=== PATIENT | male | born 1975 | race African-American/Black ===

== ENCOUNTER 2018-12-26 01:41 | Observation (INO) | payer MEDICARE, MEDICAID ==
[2018-12-26] MEDS ORDERED: INSULIN REG, HUMAN 100 UNIT/ML 3 ML VIAL (PYX) SUBCUT ONE (01:53)
--- NOTE | 2018-12-26 01:54 | ER Document Report ---
ED General - General Stated Complaint: HIGH BLOOD SUGAR Time Seen by Provider: 12/26/18 01:47 Notes: Patient is a pleasant 43-year-old male with a history of end-stage renal disease and diabetes who presents with complaint of nausea and vomiting. He said it started tonight. He does get dialysis Monday. He said he had dialysis today and everything went normal and he felt fine afterwards. He called an ambulance because he was having nausea vomiting and felt unwell. When paramedics arrived he was lying on the floor and vomiting. He said he was a bit altered. Given 250 mL's of lactated Ringer's and Zofran for nausea. Patient says after receiving the Zofran he feels a lot better. Denies headache. Denies chest pain. Denies abdominal pain. No diarrhea. No other complaints at this time. He denies recent sick contacts. Blood sugar was elevated the ambulance. blood sugar was 518. Patient says he took 18 units of Lantus at 8 PM. - Related Data Allergies/Adverse Reactions: No Known Allergies Allergy (Verified 12/26/18 02:37) Past Medical History - Social History Smoking Status: Never Smoker Frequency of alcohol use: None Drug Abuse: None Family History: Reviewed & Not Pertinent Review of Systems - Review of Systems Notes: My Normal Review Basic REVIEW OF SYSTEMS: CONSTITUTIONAL : Denies fever, chills, or sweats. Denies recent illness. EENT: Denies eye, ear, throat, or mouth pain or symptoms. Denies nasal or sinus congestion. CARDIOVASCULAR: Denies chest pain. RESPIRATORY: Denies cough, cold, or chest congestion. Denies shortness of breath, difficulty breathing, or wheezing. GASTROINTESTINAL: Denies abdominal pain. Vomiting. GENITOURINARY: Denies difficulty urinating, painful urination, burning, frequency, or blood in urine. FEMALE GENITOURINARY: Denies vaginal bleeding, abnormal or irregular periods. LMP: MUSCULOSKELETAL: Denies neck or back pain or joint pain or swelling. SKIN: Denies rash or skin lesions. NEUROLOGICAL: She was confused and altered however that has since subsided. He denies headache. No focal weakness or numbness. ALL OTHER SYSTEMS REVIEWED AND NEGATIVE. Physical Exam - Vital signs Vitals: Temp Resp BP Pulse Ox 98.1 F 18 188/100 H 91 L 12/26/18 01:47 12/26/18 01:47 12/26/18 01:47 12/26/18 01:47 - Notes Notes: General Appearance: Well nourished, alert, cooperative, no acute distress, no obvious discomfort. Vitals: reviewed, See vital signs table. Head: no swelling or tenderness to the head Eyes: PERRL, EOMI, Conjuctiva clear Mouth: No decreasd moisture Lungs: No wheezing, No rales, No rhonci, No accessory muscle use, good air exchange bilaterally. Heart: Normal rate, Regular rythm, No murmur, no rub Abdomen: Normal BS, soft, No rigidity, No abdominal tenderness, No guarding, no rebound, no abdominal masses, no organomegaly Extremities: strength 5/5 in all extremities, good pulses in all extremities, fistula in left upper extremity. Good palpable thrill. Good distal pulses. No edema in lower extremities. Skin: warm, dry, appropriate color, no rash Neuro: speech clear, oriented x 3, normal affect, responds appropriately to questions. Cranial nerves II through XII are intact. Distal sensation intact. Patient was all extremities without difficulty. Course - Re-evaluation Re-evalutation: 12/26/18 02:56 Patient's is now at bedside. She is able to give me one more history. Apparently thought it remained in the room the patient had rolled off the bed and was lying on the ground with his eyes open and completely unresponsive. She called 911. She said that he eventually took her breath but it took some time before he was breathing on his own. He then started having intractable vomiting until paramedics got there. Paramedics arrived he still bit confused but that has since improved. Patient is currently back to his baseline. Patient himself admits now that he does not really remember exactly what happened. I have ordered a CT scan to look at his head. 12/26/18 04:54 Skin of his head is negative. Initial troponin is normal. Patient's neurologic status is back to baseline is acting appropriately at this time. I am concerned with his multiple risk factors of factor syncopal episode caused him to be poorly responsive and confused for greater than 5 minutes and he had intractable vomiting immediately following this. This with his risk factors for CAD make him high risk of potential underlying arrhythmia or cardiac event. I therefore feel is is appropriate to consult hospitalist for admission for telemetry observation to trend his enzymes and keep on telemetry for observation. He is not due for dialysis again until . He will likely be discharged home before requiring dialysis as long as his enzymes remain normal and he has no further events. I therefore feel it is appropriate to admit him here for observation. I did speak with Dr. Cerna, hospitalist, who agrees to evaluate the patient for admission. Dictation of this chart was performed using voice recognition software; therefore, there may be some unintended grammatical errors. - Vital Signs Vital signs: Temp Pulse Resp BP Pulse Ox 98.1 F 19 162/89 H 96 12/26/18 01:47 12/26/18 04:01 12/26/18 04:01 12/26/18 04:01 - Laboratory Result Diagrams: 12/26/18 01:52 12/26/18 01:52 Laboratory results interpreted by me: 12/26/18 12/26/18 01:52 01:52 Hgb 10.3 L Hct 32.2 L RDW 17.0 H Sodium 135.1 L Chloride 95 L BUN 30 H Creatinine 8.51 H Est GFR ( Amer) 6 L Est GFR (Non-Af Amer) 5 L Glucose 466 H* Direct Bilirubin 0.5 H Alkaline Phosphatase 140 H - EKG Interpretation by Me Additional EKG results interpreted by me: 12/26/18 01:54 EKG is reviewed and interpreted by me. EKG shows sinus rhythm with a rate of [address] segment elevation or depression. No ischemic T wave inversions. DE interval, QRS duration are within normal range. QT interval is prolonged. 12/26/18 01:54 Discharge - Discharge Clinical Impression: ESRD (end stage renal disease), Hyperglycemia Syncope Qualifiers: Syncope type: unspecified Qualified Code(s): R55 - Syncope and collapse Vomiting Qualifiers: Vomiting type: unspecified Vomiting Intractability: non-intractable Nausea presence: with nausea Qualified Code(s): R11.2 - Nausea with vomiting, unspecified Condition: Stable Disposition: ADMITTED OBSERVATION Admitting Provider: Nehemiah (Hospitalist) Unit Admitted: Telemetry
[2018-12-26 02:03] LABS: ABSOLUTE EOSINOPHILS # (AUTO) 0.1 10^3/uL (0.0-0.6); ABSOLUTE LYMPHOCYTES (AUTO) 0.9 10^3/uL (0.5-4.7); ABSOLUTE MONOCYTES (AUTO) 0.3 10^3/uL (0.1-1.4); ABSOLUTE NEUT (AUTO) 3.2 10^3/uL (1.7-8.2); BASOPHILS % (AUTO) 0.4 % (0-2); EOSINOPHILS % (AUTO) 1.7 % (0-6); HEMATOCRIT 32.2 % (36.0-47.0); HEMOGLOBIN 10.3 g/dL (12.0-15.5); LYMPHOCYTES % (AUTO) 19.9 % (13-45); MEAN CORPUSCULAR HEMOGLOBIN 27.2 pg (27.0-33.4); MEAN CORPUSCULAR VOLUME 85 fl (80-97); MONOCYTES % (AUTO) 7.3 % (3-13); PLATELET COUNT 269 10^3/uL (150-450); RED BLOOD COUNT 3.79 10^6/uL (3.72-5.28); SEGMENTED NEUTROPHILS % (AUTO) 70.7 % (42-78); TOTAL CELLS COUNTED % (AUTO) 100 %; WHITE BLOOD COUNT 4.6 10^3/uL (4.0-10.5)
[2018-12-26 02:21] LABS: ALANINE AMINOTRANSFERASE 23 U/L (9-52); ALBUMIN 3.9 g/dL (3.5-5.0); ALKALINE PHOSPHATASE 140 U/L (38-126); ANION GAP 14 (5-19); ASPARTATE AMINO TRANSFERASE 19 U/L (14-36); BILIRUBIN,DIRECT 0.5 mg/dL (0.0-0.4); BILIRUBIN,TOTAL 0.6 mg/dL (0.2-1.3); BLOOD UREA NITROGEN 30 mg/dL (7-20); CALCIUM 9.3 mg/dL (8.4-10.2); CARBON DIOXIDE 26 mmol/L (22-30); CHLORIDE 95 mmol/L (98-107); LIPASE 39.7 U/L (23-300); POTASSIUM 4.7 mmol/L (3.6-5.0); SODIUM 135.1 mmol/L (137-145); TOTAL PROTEIN 7.4 g/dL (6.3-8.2)
[2018-12-26 02:29] LABS: GLUCOSE 466 mg/dL (75-110)
--- NOTE | 2018-12-26 03:55 | RADIOLOGY REPORT (SQ) ---
EXAM DESCRIPTION: CT HEAD WITHOUT IV CONTRAST COMPLETED DATE/TME: 12/26/2018 02:54 CLINICAL HISTORY: 43 years, Male, syncope COMPARISON: None. TECHNIQUE: 220 Images stored on PACS. All CT scanners at this facility use dose modulation, iterative reconstruction, and/or weight based dosing when appropriate to reduce radiation dose to as low as reasonably achievable (ALARA). [facility]: Dose Right [facility]: CareDose [facility]: Dose Right [facility]: Teradose 4D [facility]: [employer] LIMITATIONS: None. FINDINGS: The globes are intact. The paranasal sinuses and mastoid air cells are unremarkable. No displaced or depressed skull fracture. No intra or extra-axial hemorrhage. Subcutaneous edema and inflammatory change in the occipital region. Correlate with history. CT is limited for evaluation of acute infarct. No CT evidence for large or territorial acute infarct. No mass or midline shift. IMPRESSION: Subcutaneous inflammation in the occipital region. Negative for acute intracranial abnormality TECHNICAL DOCUMENTATION: Quality ID # 436: Final reports with documentation of one or more dose reduction techniques (e.g., Automated exposure control, adjustment of the mA and/or kV according to patient size, use of iterative reconstruction technique) copyright 2010 [employer]- All Rights Reserved
[2018-12-26] MEDS ORDERED: MAGNESIUM HYDROXIDE SUSP 30 ML UDCUP PO PRN (05:21)
[2018-12-26] MEDS ORDERED: MAG HYDROX/AL HYDROX/SIMETH SUSP 30 ML UDCUP PO PRN (05:21)
[2018-12-26] MEDS ORDERED: TEMAZEPAM 15 MG CAPSULE PO PRN (05:21)
[2018-12-26] MEDS ORDERED: HYDRALAZINE HCL INJ/PF 20 MG/1 ML SDV IV PRN (05:30)
[2018-12-26] MEDS ORDERED: INSULIN REG, HUMAN 100 UNIT/ML 3 ML VIAL (PYX) SUBCUT PRN ×2 (05:30→06:04)
[2018-12-26] MEDS ORDERED: ACETAMINOPHEN 325 MG TABLET PO PRN (05:30)
[2018-12-26] MEDS: HEPARIN SOD (PORCINE) 5,000 UNIT/ML 1 ML SYRINGE SUBCUT SCH ×2 (06:01→15:53)
[2018-12-26] MEDS: PANTOPRAZOLE SODIUM 40 MG TABLET.DR PO SCH ×2 (06:01→17:30)
[2018-12-26] MEDS ORDERED: DEXTROSE 40% GEL 15 GM TUBE PO PRN ×4 (06:04→13:06)
[2018-12-26] MEDS ORDERED: GLUCAGON,HUMAN RECOMB 1 MG INJ IM PRN ×2 (06:04→13:06)
[2018-12-26] MEDS ORDERED: DEXTROSE 50%-WATER 25 GM/50 ML DISP.SYRIN IV PRN ×4 (06:04→13:06)
--- NOTE | 2018-12-26 06:18 | PDOC H&P ---
History of Present Illness Admission Date/PCP: 12/26/2018 Patient complains of: Acute syncopal episode History of Present Illness: JOSE FOWLER is a 43 year old male who presented via EMS to the emergency room with a history of an acute syncopal episode. Patient had come home from his scheduled hemodialysis today as usual and had been feeling well all evening, then at bedtime his noticed a loud thud which came from the bedroom. She went in to find her on the floor poorly responsive. She called EMS and upon their arrival approximately 10 minutes after initiation of the call they found him moderately responsive but noted that he developed severe and intractable vomiting without nausea, which continued throughout most of his emergency room course. Patient has no memory of the episode and no recollection of any abnormalities prior to the episode. He denies prior similar symptoms and has not identified any aggravating or ameliorating factors for his syncope. In the emergency room he was found to have an essentially unremarkable evaluation given his end-stage renal disease baseline with the exception of a significantly elevated blood sugar at 466. Because of the syncopal episode the patient was admitted to observation status for further evaluation and treatment as required. Past Medical History Cardiac Medical History: Reports: Hyperlipidema, Hypertension Denies: Atrial Fibrillation, Congestive Heart Failure, Coronary Artery Disease, DVT, Myocardial Infarction, Pulmonary Embolism Pulmonary Medical History: Denies: Asthma, Chronic Obstructive Pulmonary Disease (COPD) EENT Medical History: Denies: Cataracts, Ears - Hearing aids Neurological Medical History: Denies: Hemorrhagic CVA, Ischemic CVA, Seizures Endocrine Medical History: Reports: Diabetes Mellitus Type 2 Denies: Diabetes Mellitus Type 1, Hyperthyroidism, Hypothyroidism Renal/ Medical History: Reports: End Stage Renal Disease Denies: Nephrolithiasis Malignancy Medical History: Reports: None GI Medical History: Denies: Cirrhosis, Hepatitis Musculoskeltal Medical History: Reports: Other - 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 Denies: Arthritis, Gout Skin Medical History: Denies: Eczema, Psoriasis Psychiatric Medical History: Denies: Alcohol Dependency, Substance Abuse, Tobacco Dependency Traumatic Medical History: Reports: None Hematology: Reports: Anemia Denies: Bleeding Tendencies Infectious Medical History: Reports: None Past Surgical History Past Surgical History: Reports: Orthopedic Surgery - Amputation of toes on the right foot secondary to infection, Vascular Surgery - Arteriovenous tunneled graft for hemodialysis left upper extremity Social History Information Source: Patient Lives with: Spouse/Significant other Smoking Status: Never Smoker Frequency of Alcohol Use: None Hx Recreational Drug Use: No Drugs: None Hx Prescription Drug Abuse: No - Advance Directive Resuscitation Status: Full Code Surrogate healthcare decision maker:: Tiffany Fowler his spouse Family History Family History: DM, Hypertension. denies: CAD, Malignancy Parental Family History Reviewed: Yes Children Family History Reviewed: No Sibling(s) Family History Reviewed.: Yes Medication/Allergy Allergies/Adverse Reactions: No Known Allergies Allergy (Verified 12/26/18 02:37) Review of Systems Constitutional: ABSENT: chills, fever(s) Eyes: ABSENT: visual disturbances, other - Ocular pain Ears: ABSENT: hearing changes, other - Ear pain Nose, Mouth, and Throat: ABSENT: mouth pain, sore throat Cardiovascular: ABSENT: chest pain, dyspnea on exertion, edema, orthropnea, palpitations Respiratory: ABSENT: cough, dyspnea Gastrointestinal: PRESENT: as per HPI, vomiting. ABSENT: constipation, diarrhea, nausea Genitourinary: ABSENT: dysuria, hematuria Musculoskeletal: ABSENT: back pain, joint swelling, muscle weakness Integumentary: ABSENT: pruritus, rash Neurological: PRESENT: as per HPI, syncope. ABSENT: confusion, convulsions, focal weakness, memory loss Psychiatric: ABSENT: anxiety, depression Endocrine: ABSENT: cold intolerance, heat intolerance Hematologic/Lymphatic: ABSENT: easy bleeding, easy bruising Physical Exam Vital Signs: Temp Pulse Resp BP Pulse Ox 98.1 F 18 179/91 H 96 12/26/18 01:47 12/26/18 04:31 12/26/18 04:31 12/26/18 04:31 Intake & Output 12/24/18 12/25/18 12/26/18 23:59 23:59 23:59 Weight 83.416 kg General appearance: PRESENT: no acute distress, cooperative Head exam: PRESENT: atraumatic, normocephalic Eye exam: ABSENT: conjunctival injection, scleral icterus Ear exam: PRESENT: normal external ear exam. ABSENT: bleeding, drainage Mouth exam: PRESENT: dry mucosa, neck supple Neck exam: ABSENT: thyromegaly, tracheal deviation Respiratory exam: PRESENT: clear to auscultation adenike, symmetrical, unlabored Cardiovascular exam: PRESENT: RRR, other - Arteriovenous dialysis tunnel in the left upper extremity. ABSENT: clicks, gallop, rubs Pulses: PRESENT: normal radial pulses, normal dorsalis pedis pul Vascular exam: PRESENT: normal capillary refill. ABSENT: pallor GI/Abdominal exam: PRESENT: normal bowel sounds, soft Rectal exam: PRESENT: deferred Extremities exam: ABSENT: joint swelling, pedal edema Musculoskeletal exam: PRESENT: full ROM, normal inspection Neurological exam: PRESENT: alert, oriented to person, oriented to place, oriented to time, oriented to situation, CN II-XII grossly intact. ABSENT: motor sensory deficit Psychiatric exam: PRESENT: appropriate affect, normal mood Skin exam: PRESENT: dry, intact, warm. ABSENT: jaundice, rash, urticaria Results Laboratory Results: 12/26/18 01:52 12/26/18 01:52 12/26/18 12/26/18 01:52 01:52 WBC 4.6 RBC 3.79 Hgb 10.3 L Hct 32.2 L MCV 85 MCH 27.2 MCHC 32.0 RDW 17.0 H Plt Count 269 Seg Neutrophils % 70.7 Lymphocytes % 19.9 Monocytes % 7.3 Eosinophils % 1.7 Basophils % 0.4 Absolute Neutrophils 3.2 Absolute Lymphocytes 0.9 Absolute Monocytes 0.3 Absolute Eosinophils 0.1 Absolute Basophils 0.0 Sodium 135.1 L Potassium 4.7 Chloride 95 L Carbon Dioxide 26 Anion Gap 14 BUN 30 H Creatinine 8.51 H Est GFR ( Amer) 6 L Est GFR (Non-Af Amer) 5 L Glucose 466 H* Calcium 9.3 Magnesium 2.0 Total Bilirubin 0.6 AST 19 ALT 23 Alkaline Phosphatase 140 H Total Protein 7.4 Albumin 3.9 Lipase 39.7 12/26/18 01:52 Troponin I 0.025 Impressions: Head CT 12/26/18 02:54 IMPRESSION: Subcutaneous inflammation in the occipital region. Negative for acute intracranial abnormality TECHNICAL DOCUMENTATION: Quality ID # 436: Final reports with documentation of one or more dose reduction techniques (e.g., Automated exposure control, adjustment of the mA and/or kV according to patient size, use of iterative reconstruction technique) copyright 2011 [employer]- All Rights Reserved Assessment and Plan - Diagnosis (1) Syncope Qualifiers: Syncope type: unspecified Qualified Code(s): R55 - Syncope and collapse Is this a current diagnosis for this admission?: Yes Plan: Patient will be observed for arrhythmias with a ekg monitor tech and will also have an echocardiogram and a carotid Doppler study performed. Any further evaluation will probably be done in an outpatient basis and based on the results of present testing. A CBC and basic metabolic profile will be rechecked in the morning. (2) Intractable vomiting without nausea Qualifiers: Vomiting type: unspecified Qualified Code(s): R11.11 - Vomiting without nausea Is this a current diagnosis for this admission?: Yes Plan: Patient will be treated with Thorazine 25 mg IV every 8 hours as needed for intractable vomiting. (3) Hyperglycemia Is this a current diagnosis for this admission?: Yes Plan: Patient be treated with sliding scale insulin to control his hyperglycemia during his hospital course in addition to his regular medication regimen and a diabetic diet. Hemoglobin A1c will be obtained to evaluate the efficacy of his current therapy. (4) ESRD (end stage renal disease) Is this a current diagnosis for this admission?: Yes Plan: Patient's renal functions were followed utilizing a basic metabolic profile. - Time Time Spent with patient: 25-34 minutes Medications reviewed and adjusted accordingly: Yes Anticipated discharge: Home Within: within 36 hours - Inpatient Certification Based on my medical assessment, after consideration of the patient's comorbidities, presenting symptoms, or acuity I expect that the services needed warrant INPATIENT care.: No I certify that my determination is in accordance with my understanding of Medicare's requirements for reasonable and necessary INPATIENT services [42 CFR 412.3e].: No Medical Necessity: Significant Comorbidiites Make Outpatient Treatment Too Risky, Need Close Monitoring Due to Risk of Patient Decompensation, Need For Continuous Telemetry Monitoring, Need for Neurological Checks, Risk of C omplication if Not Cared For in Hospital
[2018-12-26 10:14] LABS: CREATINE KINASE MB 3.26 ng/mL (<4.55); TROPONIN I 0.066 ng/mL
[2018-12-26] MEDS: DOCUSATE SODIUM 100 MG CAPSULE PO SCH ×2 (11:33→17:30)
--- NOTE | 2018-12-26 13:15 | PDOC PROGRESS REPORT ---
Subjective Progress Note for:: 12/26/18 Subjective:: JOSE HOWELL is a 43 year old male who presented via EMS to the emergency room with a history of an acute syncopal episode. Patient had come home from his scheduled hemodialysis today as usual and had been feeling well all evening, then at bedtime his noticed a loud thud which came from the bedroom. She went in to find her on the floor poorly responsive. She called EMS and upon their arrival approximately 10 minutes after initiation of the call they found him moderately responsive but noted that he developed severe and intractable vomiting without nausea, which continued throughout most of his emergency room course. Patient has no memory of the episode and no recollection of any abnormalities prior to the episode. He denies prior similar symptoms and has not identified any aggravating or ameliorating factors for his syncope. In the emergency room he was found to have an essentially unremarkable evaluation given his end-stage renal disease baseline with the exception of a significantly elevated blood sugar at 466. Because of the syncopal episode the patient was admitted to observation status for further evaluation and treatment as required. 12/26/2018. No acute events overnight. No recurrence of syncope. Patient does state that he remembers that he has severe intractable vomiting before passing out, he states that he was out about 10 minutes and his had reported some convulsions, he was not postictal, did not bite his tongue, did not lose bowel or bladder control. Denies any history of CVA, CAD or cardiac arrhythmias. SBP 157T-max 98.0, pulse 70s, RR 1627 SPO2 91-98% RA. WBC 4.6, hemoglobin 10.3, platelet 269, sodium 135, potassium 4.7, bicarb 26, creatinine 8.51, FBG 466, POC glucose 35677, troponin 0.025, 0.066. Reason For Visit: SYNCOPAL EPISODE Physical Exam Vital Signs: Temp Pulse Resp BP Pulse Ox 97.6 F 77 16 168/88 H 91 L 12/26/18 06:29 12/26/18 07:00 12/26/18 06:29 12/26/18 06:29 12/26/18 06:29 Intake & Output 12/25/18 12/26/18 12/27/18 06:59 06:59 06:59 Weight 84.2 kg General appearance: PRESENT: no acute distress, well-developed, well-nourished Head exam: PRESENT: atraumatic, normocephalic Eye exam: PRESENT: conjunctiva pink, EOMI, PERRLA. ABSENT: scleral icterus Ear exam: PRESENT: normal external ear exam Mouth exam: PRESENT: moist, tongue midline Neck exam: ABSENT: carotid bruit, JVD, lymphadenopathy, thyromegaly Respiratory exam: PRESENT: clear to auscultation adenike. ABSENT: rales, rhonchi, wheezes Cardiovascular exam: PRESENT: RRR. ABSENT: diastolic murmur, rubs, systolic murmur Pulses: PRESENT: normal dorsalis pedis pul Vascular exam: PRESENT: normal capillary refill GI/Abdominal exam: PRESENT: normal bowel sounds, soft. ABSENT: distended, guarding, mass, organolmegaly, rebound, tenderness Rectal exam: PRESENT: deferred Extremities exam: PRESENT: full ROM. ABSENT: calf tenderness, clubbing, pedal edema Neurological exam: PRESENT: alert, awake, oriented to person, oriented to place, oriented to time, oriented to situation, CN II-XII grossly intact. ABSENT: motor sensory deficit Psychiatric exam: PRESENT: appropriate affect, normal mood. ABSENT: homicidal ideation, suicidal ideation Skin exam: PRESENT: dry, intact, warm. ABSENT: cyanosis, rash Results Laboratory Results: 12/26/18 01:52 12/26/18 01:52 12/26/18 12/26/18 01:52 01:52 WBC 4.6 RBC 3.79 Hgb 10.3 L Hct 32.2 L MCV 85 MCH 27.2 MCHC 32.0 RDW 17.0 H Plt Count 269 Seg Neutrophils % 70.7 Lymphocytes % 19.9 Monocytes % 7.3 Eosinophils % 1.7 Basophils % 0.4 Absolute Neutrophils 3.2 Absolute Lymphocytes 0.9 Absolute Monocytes 0.3 Absolute Eosinophils 0.1 Absolute Basophils 0.0 Sodium 135.1 L Potassium 4.7 Chloride 95 L Carbon Dioxide 26 Anion Gap 14 BUN 30 H Creatinine 8.51 H Est GFR ( Amer) 6 L Est GFR (Non-Af Amer) 5 L Glucose 466 H* Calcium 9.3 Magnesium 2.0 Total Bilirubin 0.6 AST 19 ALT 23 Alkaline Phosphatase 140 H Total Protein 7.4 Albumin 3.9 Lipase 39.7 12/26/18 12/26/18 12/26/18 01:52 08:42 08:42 Creatine Kinase 226 H CK-MB (CK-2) 3.26 Troponin I 0.025 0.066 Impressions: Head CT 12/26/18 02:54 IMPRESSION: Subcutaneous inflammation in the occipital region. Negative for acute intracranial abnormality TECHNICAL DOCUMENTATION: Quality ID # 436: Final reports with documentation of one or more dose reduction techniques (e.g., Automated exposure control, adjustment of the mA and/or kV according to patient size, use of iterative reconstruction technique) copyright 2011 [employer]- All Rights Reserved Assessment and Plan - Diagnosis (1) Syncope Qualifiers: Syncope type: vasovagal syncope Qualified Code(s): R55 - Syncope and collapse Is this a current diagnosis for this admission?: Yes Plan: Likely vasovagal due to intractable nausea and vomiting. However patient states that he was out for 10 minutes and had some convulsions witnessed by the family. 09/27/2018. CT head negative. 09/28/2018: SBP 733611, T-max 98.0, pulse 70s, RR 1627 SPO2 91-98% RA. Troponin 0.025, 0.066. PT/OT/ST. Aspirin, statins, optimize blood pressure, continue telemetry. Pending MRI head, EEG and 2D carotid, EKG. (2) HTN (hypertension) Is this a current diagnosis for this admission?: No Plan: Not controlled. 12/26/2018. SBP 157T-max 98.0, pulse 70s, RR 1627 SPO2 91-98% RA. Restart amlodipine, clonidine. Monitor vitals, adjust meds as needed. Outpatient PCP follow-up. (3) ESRD (end stage renal disease) Is this a current diagnosis for this admission?: Yes Plan: On hemodialysis. 12/26/2018: Sodium 135, potassium 4.7, bicarb 26, creatinine 8.51, FBG 466, POC glucose 04268, troponin 0.025, 0.066. Monitor volume status and electrolytes. Replace as needed. Diabetic, cardiac, renal diet. Nephrology consulted for hemodialysis. (4) Intractable vomiting without nausea Qualifiers: Vomiting type: unspecified Qualified Code(s): R11.11 - Vomiting without nausea Is this a current diagnosis for this admission?: Yes Plan: Likely due to uremic system caused by end-stage renal disease. Continue current meds. (5) Hyperlipidemia Is this a current diagnosis for this admission?: No Plan: Restart statins. (6) Diabetes Qualifiers: Diabetes mellitus type: type 2 Diabetes mellitus terminal superintendent insulin use: with terminal superintendent use Chronic kidney disease stage: stage 5, not on chronic dialysis Is this a current diagnosis for this admission?: No Plan: Diabetic diet, Accu-Chek, long-acting insulin, pre-meal short-acting insulin, sliding scale insulin, adjust dosage as needed. Note: On admission patient blood glucose level of 400+. Was a started on high- dose Lantus which may explain his hypoglycemia the next day. Accu-Chek, hypoglycemia protocol.
--- NOTE | 2018-12-26 14:16 | RADIOLOGY REPORT (SQ) ---
EXAM DESCRIPTION: CAROTID DOPPLER COMPLETED DATE/TIME: 12/26/2018 1:09 pm REASON FOR STUDY: syncope COMPARISON: CT brain 12/26/2018 TECHNIQUE: Grayscale ultrasound, Doppler velocity and spectra, and color Doppler images acquired of the extra-cranial carotid and vertebral arteries. Images stored on PACS. LIMITATIONS: None. FINDINGS: RIGHT CAROTID CCA Velocities: Within normal limits. ICA Velocities Peak systolic 0.82 m/s. End diastolic 0.19 m/s. Proximal ICA/CCA peak systolic ratio 1.0. Spectra normal. No significant plaque. LEFT CAROTID CCA Velocities: Within normal limits. ICA Velocities Peak systolic 0.54 m/s. End diastolic 0.19 m/s. Proximal ICA/CCA peak systolic ratio 1.5. Spectra normal. No significant plaque. VERTEBRAL ARTERIES: Antegrade flow. Normal waveforms. SUBCLAVIAN ARTERIES: Not evaluated OTHER: No other significant finding. IMPRESSION: NO HEMODYNAMICALLY SIGNIFICANT STENOSIS. COMMENT: Quality ID #[id number]: Velocity criteria are extrapolated from the diameter data as defined by t he Society of Radiologists in Ultrasound Consensus Conference. Radiology 2003: 229; 340-346. TECHNICAL DOCUMENTATION: JOB ID: [id number] [employer]- All Rights Reserved Reading location - IP/workstation name: [email or web address]
--- NOTE | 2018-12-26 14:33 | EKG REPORT ---
SEVERITY:- BORDERLINE ECG - SINUS RHYTHM PROBABLE LEFT ATRIAL ABNORMALITY BORDERLINE PROLONGED QT INTERVAL NONSPECIFIC ST-T CHANGES LATERAL LEADS : Confirmed by: David Sepulveda MD 26-Dec-2018 14:32:49
[2018-12-26] MEDS ORDERED: INSULIN LISPRO 100 UNIT/ML 3 ML VIAL SUBCUT SCH (16:00)
--- NOTE | 2018-12-26 16:09 | NEURO WORKBENCH EEG REPORT ---
EEG Report Patient: Willian Fowler ID: [id number] Referring Doctor: Sandip Gilbert ous DOS: 12/26/2018 Medications: Tylenol, Maalox plus, Norvasc, Clonidine, dextrose, Colace, Glucagon, Porcine, hydralazine, insulin, Protonix, Restoril, milk of magnesia History This is a 43 year old right handed man with a history of hypertension, anemia, type 2 diabetes, kidney infection, end stage renal disease, hypercholesterolemia, hemodialysis fistula, toe amputation who was getting up and fell out of bed, eyes wide open and staring. This EEG was requested for syncopal event. EEG Interpretation This EEG was recorded in the awake/drowsy/sleep states. The awake EEG is characterized by a well organized background with a well developed and reactive PDR of 8.5 Hz. Drowsiness is characterized by slowing of the background rhythms. Vertex waves were poorly visualized, frontally displaced. K-complexes were present as well as well-formed sleep spindles in the midline head regions. Photic stimulation resulted in no significant changes. There were no epileptiform abnormalities. The EKG showed a regular rhythm in the 80s EEG Impression This EEG is within normal limits for age. INTERPRETING NEUROLOGIST: Manasa Marques MD, FRCPC Board Certified in Neurology, with special qualification in Child Neurology, and in Clinical Neurophysiology [facility]
[2018-12-26 16:46] LABS: CREATINE KINASE MB 2.81 ng/mL (<4.55); TROPONIN I 0.063 ng/mL
--- NOTE | 2018-12-26 17:43 | RADIOLOGY REPORT (SQ) ---
EXAM DESCRIPTION: MRI HEAD WITHOUT COMPLETED DATE/TIME: 12/26/2018 5:28 pm REASON FOR STUDY: syncope COMPARISON: None. TECHNIQUE: Multiplanar imaging includes non-contrasted T1, T2, FLAIR, and diffusion with ADC map seq uences. Images stored on PACS. LIMITATIONS: None. FINDINGS: ANATOMY: No anomalies. Normal vascular flow voids. Pituitary fossa normal. CSF SPACES: Normal in size and contour. No hemorrhage. CEREBRUM: Sulci and gyri normal in size and contour. Normal white matter signal on FLAIR imaging. No evidence of hemorrhage, mass, or extraaxial fluid collection. POSTERIOR FOSSA: No signal alteration. No hemorrhage. No edema, masses or mass effect. Internal hernandez tory canals, cerebello-pontine angles, mastoids normal. DIFFUSION IMAGING: Negative for acute or sub-acute infarction. ORBITS: No masses. Globes normal. PARANASAL SINUSES: No fluid levels. Mucosa normal. OTHER: No other significant finding. IMPRESSION: NORMAL MRI OF THE BRAIN WITHOUT INTRAVENOUS GADOLINIUM CONTRAST. EVIDENCE OF ACUTE STROKE: NO. TECHNICAL DOCUMENTATION: JOB ID: [id number]- All Rights Reserved Reading location - IP/workstation name: [email or web address]
[2018-12-26] MEDS ORDERED: CLONIDINE HCL 0.2 MG TABLET PO ONE (17:45)
[2018-12-26] MEDS ORDERED: AMLODIPINE BESYLATE 10 MG TABLET PO SCH (18:00)
[2018-12-26 18:45] LABS: CHOLESTEROL 136.44 mg/dL (0-200); TRIGLYCERIDES 58 mg/dL (<150)
[2018-12-26 18:56] LABS: DIRECT LDL 55 mg/dL (<100)
--- NOTE | 2018-12-26 19:38 | XCELERA REPORT ---
[address] [address] Transthoracic Echocardiogram Report Name: JOSE HOWELL Age: 43 yrs Gender: Male : 1975 Patient Status: Inpatient Patient Location: [address] [place] [address] Study Date: 12/26/2018 10:15 AM Height: 75 in Weight: 183 lb BSA: 2.1 m2 Procedure: A two-dimensional transthoracic echocardiogram with color flow and Doppler was performed. The study was technically limited with all images being suboptimal in quality. Images were not obtained from all of the standard acoustic windows due to the limited scope of the study. Reason For Study: syncope History: syncope. Ordering Physician: IONA BALBUENA Performed By: Jada Gale Interpretation Summary The left ventricle is mildly to moderately dilated. There is normal left ventricular wall thickness. No True apical 2 chamber views obtained.Hence cannot comment on the apical anterior , the basal anterior, the basal inferior and apical inferior encinas.The mid anterior , the mid inferior and the rest of the LV encinas are moderately hypokinetic.LVEF is moderately ly reduced at 35%. There is no thrombus. No defenite ASD ,VSD or PFO seen. The right ventricle is moderately dilated. There is mild right ventricular hypertrophy. The right ventricular systolic function is mildly reduced. The right atrium is mildly dilated. The left atrium is mildly dilated. There is borderline mitral valve prolapse. There is no vegetation seen on the mitral valve. There is no mitral valve stenosis. There is a mild amount of mitral regurgitation There is no aortic valvular vegetation. There is no aortic valve stenosis There is no LVOT obstruction. There is a trace amount of aortic regurgitation There is no tricuspid stenosis. There is a moderate amount of tricuspid regurgitation There is moderate pulmonary hypertension by echo RVSP is 54 to 59 mm of HG , with RA mean of 5 to 10. The aortic root is normal size. The inferior vena cava appeared normal and decreased > 50% with respiration (RAP 5-10 mmHg) There is no pericardial effusion. MMode/2D Measurements & Calculations RVDd: 3.6 cm LVIDd: 5.8 cm FS: 24.3 % EPSS: 1.1 cm IVSd: 1.1 cm LVIDs: 4.4 cm EDV(Teich): 168.2 ml LVPWd: 1.1 cm ESV(Teich): 88.2 ml EF(Teich): 47.6 % Ao root diam: 2.7 cm Ao root area: 5.6 cm2 LA dimension: 4.5 cm Doppler Measurements & Calculations MV E max michelle: MV P1/2t max michelle: Ao V2 max: LV V1 max P.6 cm/sec 96.0 cm/sec 102.8 cm/sec 3.0 mmHg MV A max michelle: MV P1/2t: 37.6 msec Ao max PG: LV V1 max: 41.3 cm/sec MVA(P1/2t): 5.9 cm2 4.2 mmHg 87.1 cm/sec MV E/A: 2.3 MV dec slope: 748.4 cm/sec2 MV dec time: 0.12 sec PA V2 max: PI end-d michelle: TR max michelle: MV P1/2t-pr_phl: 68.6 cm/sec 129.2 cm/sec 348.6 cm/sec 37.6 msec PA max PG: TR max P.9 mmHg 48.6 mmHg Left Ventricle The left ventricle is mildly to moderately dilated. There is normal left ventricular wall thickness. No True apical 2 chamber views obtained.Hence cannot comment on the apical anterior , the basal anterior, the basal inferior and apical inferior encinas.The mid anterior , the mid inferior and the rest of the LV encinas are moderately hypokinetic.LVEF is moderately ly reduced at 35%. There is no thrombus. No defenite ASD ,VSD or PFO seen. Right Ventricle The right ventricle is moderately dilated. There is mild right ventricular hypertrophy. The right ventricular systolic function is mildly reduced. Atria The right atrium is mildly dilated. The left atrium is mildly dilated. Mitral Valve There is borderline mitral valve prolapse. There is no vegetation seen on the mitral valve. There is no mitral valve stenosis. There is a mild amount of mitral regurgitation. Aortic Valve There is no aortic valvular vegetation. There is no aortic valve stenosis. There is no LVOT obstruction. There is a trace amount of aortic regurgitation. Tricuspid Valve There is no tricuspid stenosis. There is a moderate amount of tricuspid regurgitation. There is moderate pulmonary hypertension by echo. RVSP is 54 to 59 mm of HG , with RA mean of 5 to 10. Great Vessels The aortic root is normal size. The inferior vena cava appeared normal and decreased > 50% with respiration (RAP 5-10 mmHg). Effusions There is no pericardial effusion. : IONA BALBUENA > Isiah, Connie
[2018-12-26 19:57] VITALS: BP 173/86
[2018-12-26] MEDS ORDERED: CLONIDINE HCL 0.2 MG TABLET PO SCH (22:00)
[2018-12-26] MEDS ORDERED: INSULIN GLARGINE,HUM.REC.ANLOG 1,000 UNIT/10 ML VIAL SUBCUT SCH ×2 (22:00)
[2018-12-27] MEDS ORDERED: ASPIRIN 81 MG TABLET, CHEWABLE PO SCH (10:00)
[2018-12-27] MEDS ORDERED: CLONIDINE HCL 0.2 MG TABLET PO SCH (10:00)
--- NOTE | 2018-12-28 07:40 | EKG REPORT ---
SEVERITY:- ABNORMAL ECG - SINUS RHYTHM LEFT ATRIAL ABNORMALITY NONSPECIFIC T ABNORMALITIES, LATERAL LEADS PROLONGED QT INTERVAL LVH : Confirmed by: David Sepulveda MD 28-Dec-2018 07:39:02
== END 2018-12-26 19:15 | disposition left against medical advice (07) ==
LOC: EDSEX → ER 01:41 → EH 05:15 → 5 06:28
PROVIDERS: ADMIT Emergency Medicine; ATTEND Emergency Medicine
DX: R55 Syncope and collapse (principal); R11.11 Vomiting without nausea; I12.0 Hypertensive chronic kidney disease with stage 5 chronic kidney disease or end stage renal disease; E11.65 Type 2 diabetes mellitus with hyperglycemia; E11.22 Type 2 diabetes mellitus with diabetic chronic kidney disease; N18.6 End stage renal disease; R56.9 Unspecified convulsions; R41.0 Disorientation, unspecified; E11.649 Type 2 diabetes mellitus with hypoglycemia without coma; T38.3X5A Adverse effect of insulin and oral hypoglycemic [antidiabetic] drugs, initial encounter; Y92.239 Unspecified place in hospital as the place of occurrence of the external cause; Z99.2 Dependence on renal dialysis; Z89.421 Acquired absence of other right toe(s); Z82.49 Family history of ischemic heart disease and other diseases of the circulatory system; Z83.3 Family history of diabetes mellitus; E78.5 Hyperlipidemia, unspecified; Z79.4 Long term (current) use of insulin
CPT/HCPCS: 95819 ×2; 93005 ×2; 99285; 36415; 82553; 82962; 82550; 83690; 83735; 85025; 80053; 84484; 80061; 93306; 93880; 70551; 70450; 93010; J1644; A9270 ×4; J0360; J3490 ×2; G0378; J1815

== ENCOUNTER → 2019-11-12 | Outpatient (CLI) | payer MEDICARE, MEDICAID ==
--- NOTE | 2019-11-12 09:09 | RADIOLOGY REPORT (SQ) ---
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 TECHNIQUE: Dynamic and static grayscale images acquired of the abdomen and recorded on PACS. Additio nal selected color Doppler and spectral images recorded. Note: Study does not meet criteria for complete doppler/duplex scan LIMITATIONS: None. FINDINGS: PANCREAS: Visualized portions the pancreas are normal in appearance. LIVER: Liver demonstrates heterogeneous echogenicity. There is fatty infiltration. There is hepatom egaly. The liver measures 19.2 cm in cranial caudal dimensions. LIVER VASCULATURE: Normal directional flow of the main portal vein and hepatic veins. GALLBLADDER: Thickened gallbladder wall. Gallbladder is contracted. The wall measures up 8.0 mm. ULTRASOUND-DETECTED RUSSELL'S SIGN: Negative. INTRAHEPATIC DUCTS AND COMMON DUCT: CBD and intrahepatic ducts normal caliber. No filling defects. INFERIOR VENA CAVA: Visualized portions of the IVC is patent. AORTA: Visualized portions of the abdominal aorta are patent. No aneurysmal dilatation. RIGHT KIDNEY: Normal size. Normal echogenicity. No solid or suspicious masses. No hydronephros is. No calcifications. LEFT KIDNEY: Normal size. Normal echogenicity. No solid or suspicious masses. No hydronephrosi s. No calcifications. SPLEEN: Mild splenomegaly measured 14.2 cm. The spleen is heterogeneous in echogenicity. PERITONEAL AND PLEURAL SPACES: There is moderate ascites. OTHER: No other significant finding. IMPRESSION: Hepatosplenomegaly. Moderate ascites. Thickened gallbladder wall no pericholecystic fluid. Negative sonographic Russell's sign. TECHNICAL DOCUMENTATION: JOB ID: [id number] 2010 [employer]- All Rights Reserved Reading location - IP/workstation name: [email or web address]
== END ==
LOC: RAD 07:19
PROVIDERS: ATTEND Physician Assistant Medical
DX: E80.7 Disorder of bilirubin metabolism, unspecified (principal); K76.5 Hepatic veno-occlusive disease
CPT/HCPCS: 76700

== ENCOUNTER 2019-11-28 07:34 | Day surgery (SDC) | payer MEDICARE, MEDICAID ==
[2019-11-28 08:11] LABS: HEMATOCRIT 30.8 % (37.9-51.0); HEMOGLOBIN 10.7 g/dL (13.5-17.0); MEAN CORPUSCULAR HEMOGLOBIN 30.5 pg (27.0-33.4); MEAN CORPUSCULAR HGB CONC 34.7 g/dL (32.0-36.0); MEAN CORPUSCULAR VOLUME 88 fl (80-97); PLATELET COUNT 345 10^3/uL (150-450); RED BLOOD COUNT 3.51 10^6/uL (4.35-5.55); RED CELL DISTRIBUTION WIDTH 17.7 % (11.5-14.0); WHITE BLOOD COUNT 8.3 10^3/uL (4.0-10.5)
[2019-11-28 08:20] LABS: PROTHROMBIN TIME 14.3 SEC (11.4-15.4)
[2019-11-28 08:21] LABS: PARTIAL THROMBOPLASTIN TIME 33.3 SEC (23.5-35.8)
[2019-11-28 08:28] LABS: BLOOD UREA NITROGEN 30 mg/dL (7-20)
[2019-11-28 10:59] VITALS: BP 179/91
[2019-11-28 11:02] LABS: FLUID SOURCE ASCITES; FLUID TYPE PERITONEAL
[2019-11-28 11:03] LABS: FLUID APPEARANCE CLEAR; FLUID COLOR AMBER; FLUID VISCOSITY LIQUID
--- NOTE | 2019-11-28 11:34 | RADIOLOGY REPORT (SQ) ---
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 RADIATION DOSE: None none LIMITATIONS: None. PROCEDURE: Procedure, risks, benefit, and alternative explained to patient who then gave written con sent. The left lower abdominal wall marked using ultrasound guidance. A time-out was called for cor rect marking verification. Abdomen prepped and draped using sterile technique. Local anesthesia achi eved using 5 ml of 1% lidocaine injection. A 6fr Kssg-C-Awodoptm set was introduced into the periton eal cavity. Fluid was drained. The catheter was removed and entry site was covered with sterile ban dage. No immediate complications noted. Images acquired during the procedure were stored on PACS. FINDINGS: ENTRY SITE: left lower quadrant. FLUID VOLUME: 1000 mL FLUID ANALYSIS: Dark yellow colored ascitic fluid OTHER: Fluid sent to the lab for testing. IMPRESSION: SUCCESSFUL ULTRASOUND GUIDED PARACENTESIS. COMMENT: Patient medication list reviewed:Yes- Quality ID# [id number]:Eligible professional attests to docu menting in the medical record they obtained, updated, or reviewed the patient's current medications. TECHNICAL DOCUMENTATION: JOB ID: [id number] [employer]- All Rights Reserved Reading location - IP/workstation name: [email or web address]
== END 2019-11-28 11:01 | disposition home or self-care (01) ==
LOC: RAD 07:34
PROVIDERS: ATTEND Internal Medicine Gastroenterology
DX: R18.8 Other ascites (principal); Z79.899 Other long term (current) drug therapy; Z79.01 Long term (current) use of anticoagulants; R16.2 Hepatomegaly with splenomegaly, not elsewhere classified; R94.5 Abnormal results of liver function studies; K76.0 Fatty (change of) liver, not elsewhere classified
CPT/HCPCS: 36415; 49083; 82042; 82565; 82962; 84520; 85027; 85610; 85730; 89050

== ENCOUNTER → 2019-11-28 | Outpatient (CLI) | payer MEDICARE, MEDICAID ==
--- NOTE | 2019-11-28 10:16 | RADIOLOGY REPORT (SQ) ---
EXAM DESCRIPTION: U/S ABDOMEN COMPLETE W/O DOP IMAGES COMPLETED DATE/TIME: 11/28/2019 8:35 am REASON FOR STUDY: HEPATOMEGALY WITH SPLENOMEGALY, NOT ELSE R16.2 HEPATOMEGALY WITH SPLENOMEGALY, NO T ELSEWHERE CLASSIFI COMPARISON: None. TECHNIQUE: Dynamic and static grayscale images acquired of the abdomen and recorded on PACS. Additio nal selected color Doppler and spectral images recorded. Note: Study does not meet criteria for complete doppler/duplex scan LIMITATIONS: None. FINDINGS: PANCREAS: No masses. Visualized pancreatic duct normal caliber. LIVER: Mild hepatomegaly. No masses. Echotexture normal. LIVER VASCULATURE: Normal directional flow of the main portal vein and hepatic veins. GALLBLADDER: Gallstones. Thickened gallbladder wall likely secondary to ascites. No pericholecystic fluid. ULTRASOUND-DETECTED SENA'S SIGN: Negative. INTRAHEPATIC DUCTS AND COMMON DUCT: CBD and intrahepatic ducts normal caliber. No filling defects. INFERIOR VENA CAVA: Normal flow. AORTA: No aneurysm. RIGHT KIDNEY: Normal size. Normal echogenicity. No solid or suspicious masses. No hydronephros is. No calcifications. LEFT KIDNEY: Normal size. Normal echogenicity. No solid or suspicious masses. No hydronephrosi s. No calcifications. SPLEEN: Splenomegaly. No focal lesions. PERITONEAL AND PLEURAL SPACES: Mild ascites. OTHER: No other significant finding. IMPRESSION: 1. Hepatosplenomegaly. 2. Small amount of ascites. 3. Cholelithiasis. TECHNICAL DOCUMENTATION: JOB ID: [id number] 2010 [employer]- All Rights Reserved Reading location - IP/workstation name: [email or web address]
== END ==
LOC: RAD 07:00
PROVIDERS: ATTEND Internal Medicine Gastroenterology
DX: R16.2 Hepatomegaly with splenomegaly, not elsewhere classified (principal); K80.20 Calculus of gallbladder without cholecystitis without obstruction; R18.8 Other ascites
CPT/HCPCS: 76700

== ENCOUNTER → 2019-12-05 | Outpatient (CLI) | payer MEDICARE, MEDICAID ==
[2019-12-05 10:02] LABS: INTERNATIONAL RATION (INR) 1.17
[2019-12-05 10:11] LABS: ALBUMIN 3.6 g/dL (3.5-5.0); ALKALINE PHOSPHATASE 665 U/L (38-126); ASPARTATE AMINO TRANSFERASE 24 U/L (17-59); BILIRUBIN,TOTAL 5.9 mg/dL (0.2-1.3); TOTAL PROTEIN 7.9 g/dL (6.3-8.2)
[2019-12-06 07:02] LABS: AFP SERUM TUMOR MARKER 4.6 ng/mL (0.0-8.3)
== END ==
LOC: OD 08:59
PROVIDERS: ATTEND Internal Medicine Gastroenterology
DX: K74.69 Other cirrhosis of liver (principal); R16.2 Hepatomegaly with splenomegaly, not elsewhere classified
CPT/HCPCS: 36415; 80076; 82105; 82390; 85610; 86431